=== PATIENT | female | born 1985 | race Native Hawaiian/Other Pacific Islander ===

== ENCOUNTER 2016-10-07 00:39 | Emergency (ER) | payer OTHER ==
[2016-10-07] MEDS ORDERED: ACETAMINOPHEN 325 MG TAB As Ordered ONE (02:16)
[2016-10-07] MEDS ORDERED: CIPROFLOXACIN 500 MG TAB As Ordered ONE (03:18)
--- NOTE | 2016-10-07 03:33 | EDDOCDS ---
Nurse's Notes [facility] Name: Elizabeth Joyce Age: 30 yrs Sex: Female : 1985 Arrival Date: 10/07/2016 Time: 00:39 Bed I5 / M5 Private MD: Diagnosis: Urinary tract infection, site not specified Presentation: 10/07 00:48 Presenting complaint: Patient states: fever, sore throat, body aches. Risk factors: af2 Stridor is not present. Drooling is not present. Shortness of breath is not present. Cellulitis is not present. Adult Sepsis Screening: The patient does not have new or worsening altered mentation. Patient's respiratory rate is less than 22. Systolic blood pressure is greater than 100. Patient has a qSOFA score of 0- Negative Sepsis Screen. Suicide/Homicide risk assessment- the patient denies having any suicidal and/or homicidal ideations and does not present with any other emotional, behavioral or mental health complaints. 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 Transition of care: patient was not received from another setting of care. 00:48 Acuity: MABEL Level 5 af2 00:48 Method Of Arrival: Walkin/Carried/Asstd af2 Triage Assessment: 00:49 General: Appears in no apparent distress, Behavior is cooperative. Pain: Location: af2 throat Pain currently is 6 out of 10 on a pain scale. Pt Declines HIV testing. EENT: Reports sore throat. Respiratory: Airway is patent Respiratory effort is even, unlabored. BIOLOGY INTERNSHIP: 00:46 LMP N/A - control method af2 Historical: - Allergies: Tramadol HCl; PENICILLINS; - Home Meds: 1. none - PMHx: none; - PSHx: none; - Social history: Smoking status: Patient states was never smoker of tobacco. No barriers to communication noted, Speaks appropriately for age. - Family history: No immediate family members are acutely ill. - : The pt / caregiver states he / she is not on anticoagulants. Home medication list is obtained from the patient. - Exposure Risk Screening:: None identified. Screenin:29 Screening information is obtained from the patient. Fall risk: No risks identified. sls1 Assistance ADL's: requires no assistance with activities of daily living. Abuse/DV Screen: The patient / caregiver reports he/she is: not in a situation that causes fear, pain or injury. Nutritional screening: No deficits noted. Advance Directives: Further advance directive information is declined. home support is adequate. Assessment: 02:29 General: Appears in no apparent distress, Behavior is appropriate for age, cooperative. sls1 Neurological: Level of Consciousness is awake, alert. EENT: Throat is reddened has enlarged tonsils on right with gag reflex present. Respiratory: Airway is patent Respiratory effort is even, unlabored, Respiratory pattern is regular, symmetrical. Derm: No deficits noted. 03:30 Reassessment: Patient appears in no apparent distress at this time. Discharge sls1 instructions reviewed with pt including medication use and follow up care, pt verbalizes understanding of all instructions. Pain: Denies pain. Neurological: No deficits noted. Respiratory: No deficits noted. Vital Signs: 00:46 BP 126 / 76 RA Sitting (auto/); Pulse 96; Resp 18 S; Temp 101(T); Pulse Ox 99% on R/A; af2 Weight 63.5 kg (R); Height 5 ft. 3 in. (160.02 cm) (R); Pain 6/10; 03:30 BP 132 / 74; Pulse 92; Resp 18; Temp 97.8(O); Pulse Ox 99% on R/A; Pain 0/10; sls1 00:46 Body Mass Index 24.80 (63.50 kg, 160.02 cm) af2 Vitals: 00:46 Log In Time: October 07, 2016 at 00:39. af2 02:30 Strep Screen is obtained and tested: Negative, a GATSNEG culture is ordered in [place] [address] and sent. ED Course: 00:40 Patient visited by Bao Marshall, Reg. pm4 00:40 Patient moved to Waiting pm4 00:48 Triage Initiated af2 00:50 Patient visited by Denia Gabriel RN. af2 00:50 Patient moved to TR2 af2 00:51 Patient moved to [facility] Wait sls1 01:44 Patient moved to I5 / M5 [facility] 02:21 Nakul Erickson RPA-C is PHCP. ck7 02:21 Harry Harrison DO is Attending Physician. ck7 02:21 Patient visited by Nakul Ericksno RPA-C. ck7 02:29 The patient / caregiver is instructed regarding the plan of care and ED course. Patient sls1 has correct armband on for positive identification. 02:29 Urine Culture Sent. sls1 02:29 UA Sent. sls1 02:29 -Influenza A&B Rapid Antigen - Nose Sent. sls1 02:29 No IV's were initiated during this patient's visit. Strep culture sent to lab. sls1 02:31 Patient visited by Annelise Corley RN. sls1 02:35 GATS (NEGATIVE STREP SCREEN) Sent. sls1 02:[address] to [address] lane 02:52 Patient moved to I5 / lane 03:15 [facility] Payment Agreement was scanned into [employer] and attached to record. hs2 03:30 Discontinued lock intact, bleeding controlled, pressure dressing applied, No sls1 redness/swelling at site. No procedures done that require assistance. Administered Medications: 02:22 Drug: Acetaminophen 975 mg [acetaminophen 325 mg tablet (3 tabs)] Route: PO; sls1 03:30 Drug: Ciprofloxacin 500 mg [ciprofloxacin 500 mg tablet (1 tabs)] Route: PO; [facility] Point of Care Testing: Urine : 02:30 hCG Reading: Negative; Control Reading: Positive; [facility] Ranges: Order Results: Lab Order: -Influenza A&B Rapid Antigen - Nose; SPEC'M 10/07/16 02:27 Test: INFLUENZA A RAPID SCR by ICA; Value: INFLUENZA A RESULTS NEGATIVE; Status: F Test: INFLUENZA A RAPID SCR by ICA; Value: Comments:; Status: F Test: INFLUENZA B RAPID SCR by ICA; Value: INFLUENZA B RESULTS NEGATIVE; Status: F Test Note: ; The Influenza test is a direct rapid immunoassay for the qualitative detection of Influenza viral antigen. Cell culture (Viral Culture) testing should be considered to confirm NEGATIVE results and to assist in detecting other viruses that can provide similar clinical symptoms. Please contact the lab within 24 hours ([phone] if confirmatory testing is desired. Lab Order: UA; SPEC'M 10/07/16 02:27 Test: APPEARANCE, URINE; Value: CLOUDY; Range: CLEAR; Abnormal: Above high normal; Status: F Test: COLOR, URINE; Value: DENIA; Range: YELLOW; Status: F Test: PH,URINE; Value: 5.0; Range: 5.0-9.0; Units: UNITS; Status: F Test: SPECIFIC GRAVITY URINE AUTO; Value: 1.026; Range: 1.002-1.035; Status: F Test: PROTEIN, URINE AUTO; Value: 1+; Range: NEGATIVE; Abnormal: Above high normal; Units: mg/dL; Status: F Test: GLUCOSE, URINE (UA) AUTO; Value: NEGATIVE; Range: NEGATIVE; Units: mg/dL; Status: F Test: KETONE, URINE AUTO; Value: NEGATIVE; Range: NEGATIVE; Units: mg/dL; Status: F Test: UROBILINOGEN, URINE AUTO; Value: 2.0; Range: 0.0-2.0; Abnormal: Above high normal; Units: mg/dL; Status: F Test: BILIRUBIN, URINE AUTO; Value: NEGATIVE; Range: NEGATIVE; Status: F Test: NITRITE, URINE AUTO; Value: POSITIVE; Range: NEGATIVE; Status: F Test: LEUKOCYTE ESTERASE, URINE AUTO; Value: 2+; Range: NEGATIVE; Abnormal: Above high normal; Status: F Test: BLOOD, URINE BLOOD; Value: 1+; Range: NEGATIVE; Abnormal: Above high normal; Status: F Test: WBC, URINE AUTO; Value: 59; Range: 0-3; Abnormal: Above high normal; Units: /HPF; Status: F Test: RBC, URINE AUTO; Value: 13; Range: 0-3; Abnormal: Above high normal; Units: /HPF; Status: F Test: BACTERIA, URINE AUTO; Value: 3+; Range: NEGATIVE; Abnormal: Above high normal; Status: F Test: SQUAMOUS EPITHELIAL CELL UR AU; Value: 18; Range: 0-6; Units: /HPF; Status: F Test: MUCUS, URINE; Value: LARGE; Range: NEGATIVE; Status: F Test: HYALINE CAST, URINE AUTO; Value: 0; Range: 0-1; Units: /LPF; Status: F Outcome: 03:06 Discharge ordered by Provider. ck7 03:30 Discharge Assessment: Patient awake, alert and oriented x 3. No cognitive and/or sls1 functional deficits noted. Patient verbalized understanding of disposition instructions. patient administered narcotics - no. The following High Risk Discharge criteria are identified: None. Discharged to home ambulatory. Condition: stable. Discharge instructions given to patient, Instructed on discharge instructions, follow up and referral plans. medication usage, Demonstrated understanding of instructions, medications, Pt was receptive of discharge instructions/ teaching. Prescriptions given X 1. No special radiology studies were completed. Property :Personal belongings accompany Pt. 03:33 Patient left the ED. sls1 Signatures: Durga Campos Shannon, RN RN sls1 Nakul Erickson, RPA-C RPA-Cck7 Denia Gabriel RN RN af2 Radha Arango, Reg Reg hs2 Bao Marshall, Reg Reg pm4 MTDD
--- NOTE | 2016-10-07 03:33 | EDDOCDS ---
Physician Documentation [facility] Name: Elizabeth Joyce Age: 30 yrs Sex: Female : 1985 Arrival Date: 10/07/2016 Time: 00:39 Bed I5 / M5 Private MD: Disposition: 10/07/16 03:06 Discharged to Home/Self Care. Impression: Urinary tract infection, site not specified. - Condition is Stable. - Discharge Instructions: Urinary Tract Infection. - Prescriptions for Cipro 500 mg Oral Tablet - take 1 tablet by ORAL route every 12 hours; 14 tablet. - Medication Reconciliation, Local Pharmacy Hours form. - Follow up: Private Physician; When: Tomorrow; Reason: Recheck today's complaints, Continuance of care. - Problem is new. - Symptoms have improved. Historical: - Allergies: Tramadol HCl; PENICILLINS; - Home Meds: 1. none - PMHx: none; - PSHx: none; - Social history: Smoking status: Patient states was never smoker of tobacco. No barriers to communication noted, Speaks appropriately for age. - Family history: No immediate family members are acutely ill. - : The pt / caregiver states he / she is not on anticoagulants. Home medication list is obtained from the patient. - Exposure Risk Screening:: None identified. 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 3 in. (160.02 cm) (R); Pain 6/10; 03:30 BP 132 / 74; Pulse 92; Resp 18; Temp 97.8(O); Pulse Ox 99% on R/A; Pain 0/10; sls1 00:46 Body Mass Index 24.80 (63.50 kg, 160.02 cm) af2 MDM: 02:15 Acetaminophen Tablet 975 mg PO once ordered. sls1 02:26 Strep Screen, Nursing ordered. ck7 02:26 Obtain sample by nasopharyngeal swab ordered. ck7 02:26 UCG by Nursing ordered. ck7 02:26 -Influenza A&B Rapid Antigen - Nose Ordered. EDMS 02:26 UA Ordered. EDMS 02:26 Urine Culture Ordered. EDMS 02:30 GATS (NEGATIVE STREP SCREEN) Ordered. EDMS 02:40 Chest, 2 View (pa\E\lat) Ordered. EDMS 02:58 Ciprofloxacin 500 mg PO once ordered. ck7 02:58 UA Reviewed. ck7 03:05 Financial registration complete. hs2 03:15 [facility] Payment Agreement was scanned into [employer] and attached to record. hs2 Point of Care Testing: Urine : 02:30 hCG Reading: Negative; Control Reading: Positive; sls1 Ranges: Administered Medications: 02:22 Drug: Acetaminophen 975 mg [acetaminophen 325 mg tablet (3 tabs)] Route: PO; sls1 03:30 Drug: Ciprofloxacin 500 mg [ciprofloxacin 500 mg tablet (1 tabs)] Route: PO; sls1 Signatures: Dispatcher [employer] EDAnnelise Prasad RN RN sls1 Nakul Erickson, RPA-C RPA-Cck7 Denia Gabriel RN RN af2 Radha Arango, Reg Reg hs2 The chart was reviewed and I authenticate all verbal orders and agree with the evaluation and treatment provided.Attachments: 03:15 [facility] Payment Agreement hs2 MTDD
--- NOTE | 2016-10-07 07:03 | REP ---
Clinical: Chest pain and fever . Comparison: None . Technique: PA and lateral. Findings: The mediastinum and cardiac silhouette are normal. The lung chase are clear and without acute consolidation, effusion, or pneumothorax. The skeletal structures are intact and normal. Impression: 1. No acute cardiopulmonary process. Signed by Aguilar Trent MD 10/07/2016 06:54 A
--- NOTE | 2016-10-09 04:33 | EDDOCDS ---
Physician Documentation [facility] Name: Elizabeth Evans Age: 30 yrs Sex: Female : 1985 Arrival Date: 10/07/2016 Time: 00:39 Bed I5 / M5 Private MD: Disposition: 10/07/16 03:06 Discharged to Home/Self Care. Impression: Urinary tract infection, site not specified. - Condition is Stable. - Discharge Instructions: Urinary Tract Infection. - Prescriptions for Cipro 500 mg Oral Tablet - take 1 tablet by ORAL route every 12 hours; 14 tablet. - Medication Reconciliation, Local Pharmacy Hours form. - Follow up: Private Physician; When: Tomorrow; Reason: Recheck today's complaints, Continuance of care. - Problem is new. - Symptoms have improved. Historical: - Allergies: Tramadol HCl; PENICILLINS; - Home Meds: 1. none - PMHx: none; - PSHx: none; - Social history: Smoking status: Patient states was never smoker of tobacco. No barriers to communication noted, Speaks appropriately for age. - Family history: No immediate family members are acutely ill. - : The pt / caregiver states he / she is not on anticoagulants. Home medication list is obtained from the patient. - Exposure Risk Screening:: None identified. 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 3 in. (160.02 cm) (R); Pain 6/10; 03:30 BP 132 / 74; Pulse 92; Resp 18; Temp 97.8(O); Pulse Ox 99% on R/A; Pain 0/10; sls1 00:46 Body Mass Index 24.80 (63.50 kg, 160.02 cm) af2 MDM: 02:15 Acetaminophen Tablet 975 mg PO once ordered. sls1 02:26 Strep Screen, Nursing ordered. ck7 02:26 Obtain sample by nasopharyngeal swab ordered. ck7 02:26 UCG by Nursing ordered. ck7 02:26 -Influenza A&B Rapid Antigen - Nose Ordered. EDMS 02:26 UA Ordered. EDMS 02:26 Urine Culture Ordered. EDMS 02:30 GATS (NEGATIVE STREP SCREEN) Ordered. EDMS 02:40 Chest, 2 View (pa\E\lat) Ordered. EDMS 02:58 Ciprofloxacin 500 mg PO once ordered. ck7 02:58 UA Reviewed. ck7 03:05 Financial registration complete. hs2 03:15 [facility] Payment Agreement was scanned into [employer] and attached to record. hs2 12:29 T-Sheet-- Draft Copy was scanned into [employer] and attached to record. gb Point of Care Testing: Urine : 02:30 hCG Reading: Negative; Control Reading: Positive; sls1 Ranges: Administered Medications: 02:22 Drug: Acetaminophen 975 mg [acetaminophen 325 mg tablet (3 tabs)] Route: PO; sls1 03:30 Drug: Ciprofloxacin 500 mg [ciprofloxacin 500 mg tablet (1 tabs)] Route: PO; sls1 Signatures: Dispatcher [employer] EDMS Kathryn Chatterjee, Reg Reg gb Annelise Corley RN RN sls1 Nakul Erickson, RPA-C RPA-Cck7 Denia GabrielRN RN af2 Radha Arango, Reg Reg hs2 The chart was reviewed and I authenticate all verbal orders and agree with the evaluation and treatment provided.Attachments: 03:15 [facility] Payment Agreement hs2 12:29 T-Sheet-- Draft Copy gb Chart Complete MTDD
--- NOTE | 2016-10-09 04:33 | EDDOCDS ---
Nurse's Notes [facility] Name: Elizabeth Evans Age: 30 yrs Sex: Female : 1985 Arrival Date: 10/07/2016 Time: 00:39 Bed I5 / M5 Private MD: Diagnosis: Urinary tract infection, site not specified Presentation: 10/07 00:48 Presenting complaint: Patient states: fever, sore throat, body aches. Risk factors: af2 Stridor is not present. Drooling is not present. Shortness of breath is not present. Cellulitis is not present. Adult Sepsis Screening: The patient does not have new or worsening altered mentation. Patient's respiratory rate is less than 22. Systolic blood pressure is greater than 100. Patient has a qSOFA score of 0- Negative Sepsis Screen. Suicide/Homicide risk assessment- the patient denies having any suicidal and/or homicidal ideations and does not present with any other emotional, behavioral or mental health complaints. 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 Transition of care: patient was not received from another setting of care. 00:48 Acuity: MABEL Level 5 af2 00:48 Method Of Arrival: Walkin/Carried/Asstd af2 Triage Assessment: 00:49 General: Appears in no apparent distress, Behavior is cooperative. Pain: Location: af2 throat Pain currently is 6 out of 10 on a pain scale. Pt Declines HIV testing. EENT: Reports sore throat. Respiratory: Airway is patent Respiratory effort is even, unlabored. PAIN MANAGEMENT PHYSICIAN: 00:46 LMP N/A - control method af2 Historical: - Allergies: Tramadol HCl; PENICILLINS; - Home Meds: 1. none - PMHx: none; - PSHx: none; - Social history: Smoking status: Patient states was never smoker of tobacco. No barriers to communication noted, Speaks appropriately for age. - Family history: No immediate family members are acutely ill. - : The pt / caregiver states he / she is not on anticoagulants. Home medication list is obtained from the patient. - Exposure Risk Screening:: None identified. Screenin:29 Screening information is obtained from the patient. Fall risk: No risks identified. sls1 Assistance ADL's: requires no assistance with activities of daily living. Abuse/DV Screen: The patient / caregiver reports he/she is: not in a situation that causes fear, pain or injury. Nutritional screening: No deficits noted. Advance Directives: Further advance directive information is declined. home support is adequate. Assessment: 02:29 General: Appears in no apparent distress, Behavior is appropriate for age, cooperative. sls1 Neurological: Level of Consciousness is awake, alert. EENT: Throat is reddened has enlarged tonsils on right with gag reflex present. Respiratory: Airway is patent Respiratory effort is even, unlabored, Respiratory pattern is regular, symmetrical. Derm: No deficits noted. 03:30 Reassessment: Patient appears in no apparent distress at this time. Discharge sls1 instructions reviewed with pt including medication use and follow up care, pt verbalizes understanding of all instructions. Pain: Denies pain. Neurological: No deficits noted. Respiratory: No deficits noted. Vital Signs: 00:46 BP 126 / 76 RA Sitting (auto/); Pulse 96; Resp 18 S; Temp 101(T); Pulse Ox 99% on R/A; af2 Weight 63.5 kg (R); Height 5 ft. 3 in. (160.02 cm) (R); Pain 6/10; 03:30 BP 132 / 74; Pulse 92; Resp 18; Temp 97.8(O); Pulse Ox 99% on R/A; Pain 0/10; sls1 00:46 Body Mass Index 24.80 (63.50 kg, 160.02 cm) af2 Vitals: 00:46 Log In Time: October 07, 2016 at 00:39. af2 02:30 Strep Screen is obtained and tested: Negative, a GATSNEG culture is ordered in [place] [id number] and sent. ED Course: 00:40 Patient visited by Bao Marshall, Reg. pm4 00:40 Patient moved to Waiting pm4 00:48 Triage Initiated af2 00:50 Patient visited by Denia Gabriel RN. af2 00:50 Patient moved to TR2 af2 00:51 Patient moved to [facility] Wait sls1 01:44 Patient moved to I5 / M5 [facility] 02:21 Nakul Erickson RPA-C is PHCP. ck7 02:21 Harry Harrison DO is Attending Physician. ck7 02:21 Patient visited by Nakul Erickson RPA-C. ck7 02:29 The patient / caregiver is instructed regarding the plan of care and ED course. Patient sls1 has correct armband on for positive identification. 02:29 Urine Culture Sent. sls1 02:29 UA Sent. sls1 02:29 -Influenza A&B Rapid Antigen - Nose Sent. sls1 02:29 No IV's were initiated during this patient's visit. Strep culture sent to lab. sls1 02:31 Patient visited by Annelise Corley RN. sls1 02:35 GATS (NEGATIVE STREP SCREEN) Sent. sls1 02:[address] moved to Radiology lane 02:52 Patient moved to I5 / M5 lane 03:15 [facility] Payment Agreement was scanned into [employer] and attached to record. hs2 03:30 Discontinued lock intact, bleeding controlled, pressure dressing applied, No sls1 redness/swelling at site. No procedures done that require assistance. 07:41 Chest, 2 View (pa\E\lat) Returned. EDMS 12:29 T-Sheet-- Draft Copy was scanned into [employer] and attached to record. 10/08 07:07 Patient name changed from December\S\Monserrat\S\Isiah\S\ to December\S\Monserrat\S\Salon. EDMS Administered Medications: 10/07 02:22 Drug: Acetaminophen 975 mg [acetaminophen 325 mg tablet (3 tabs)] Route: PO; sls1 03:30 Drug: Ciprofloxacin 500 mg [ciprofloxacin 500 mg tablet (1 tabs)] Route: PO; [facility] Point of Care Testing: Urine : 02:30 hCG Reading: Negative; Control Reading: Positive; [facility] Ranges: Order Results: Lab Order: -Influenza A&B Rapid Antigen - Nose; SPEC'M 10/07/16 02:27 Test: INFLUENZA A RAPID SCR by ICA; Value: INFLUENZA A RESULTS NEGATIVE; Status: F Test: INFLUENZA A RAPID SCR by ICA; Value: Comments:; Status: F Test: INFLUENZA B RAPID SCR by ICA; Value: INFLUENZA B RESULTS NEGATIVE; Status: F Test Note: ; The Influenza test is a direct rapid immunoassay for the qualitative detection of Influenza viral antigen. Cell culture (Viral Culture) testing should be considered to confirm NEGATIVE results and to assist in detecting other viruses that can provide similar clinical symptoms. Please contact the lab within 24 hours ([phone]) if confirmatory testing is desired. Lab Order: UA; SPEC'M 10/07/16 02:27 Test: APPEARANCE, URINE; Value: CLOUDY; Range: CLEAR; Abnormal: Above high normal; Status: F Test: COLOR, URINE; Value: DENIA; Range: YELLOW; Status: F Test: PH,URINE; Value: 5.0; Range: 5.0-9.0; Units: UNITS; Status: F Test: SPECIFIC GRAVITY URINE AUTO; Value: 1.026; Range: 1.002-1.035; Status: F Test: PROTEIN, URINE AUTO; Value: 1+; Range: NEGATIVE; Abnormal: Above high normal; Units: mg/dL; Status: F Test: GLUCOSE, URINE (UA) AUTO; Value: NEGATIVE; Range: NEGATIVE; Units: mg/dL; Status: F Test: KETONE, URINE AUTO; Value: NEGATIVE; Range: NEGATIVE; Units: mg/dL; Status: F Test: UROBILINOGEN, URINE AUTO; Value: 2.0; Range: 0.0-2.0; Abnormal: Above high normal; Units: mg/dL; Status: F Test: BILIRUBIN, URINE AUTO; Value: NEGATIVE; Range: NEGATIVE; Status: F Test: NITRITE, URINE AUTO; Value: POSITIVE; Range: NEGATIVE; Status: F Test: LEUKOCYTE ESTERASE, URINE AUTO; Value: 2+; Range: NEGATIVE; Abnormal: Above high normal; Status: F Test: BLOOD, URINE BLOOD; Value: 1+; Range: NEGATIVE; Abnormal: Above high normal; Status: F Test: WBC, URINE AUTO; Value: 59; Range: 0-3; Abnormal: Above high normal; Units: /HPF; Status: F Test: RBC, URINE AUTO; Value: 13; Range: 0-3; Abnormal: Above high normal; Units: /HPF; Status: F Test: BACTERIA, URINE AUTO; Value: 3+; Range: NEGATIVE; Abnormal: Above high normal; Status: F Test: SQUAMOUS EPITHELIAL CELL UR AU; Value: 18; Range: 0-6; Units: /HPF; Status: F Test: MUCUS, URINE; Value: LARGE; Range: NEGATIVE; Status: F Test: HYALINE CAST, URINE AUTO; Value: 0; Range: 0-1; Units: /LPF; Status: F Lab Order: Urine Culture; SPEC'M 10/07/16 02:27 Test: URINE CULTURE; Value: ORGANISM 1: ESCHERICHIA COLI; Status: F Test: URINE CULTURE; Value: ESCHERICHIA COLI; Status: F Test: URINE CULTURE; Value: COLONY COUNT CFU/ml >100,000; Status: F Test: URINE CULTURE; Value: GRAM NEG SENSI - VITEK 80; Status: F Test: URINE CULTURE; Value: Method: VIT2; Status: F Test: URINE CULTURE; Value: EXTD BRD SPCTRM BETA LACTAMASE -; Status: F Test: URINE CULTURE; Value: TRIMETHOPRIM/SULFAMETHOXAZOLE <=20 S; Status: F Test: URINE CULTURE; Value: AMPICILLIN >=32 R; Status: F Test: URINE CULTURE; Value: GENTAMICIN <=1 S; Status: F Test: URINE CULTURE; Value: NITROFURANTOIN <=16 S; Status: F Test: URINE CULTURE; Value: CEFAZOLIN 16 I; Status: F Test: URINE CULTURE; Value: LEVOFLOXACIN <=0.12 S; Status: F Test: URINE CULTURE; Value: TOBRAMYCIN <=1 S; Status: F Test: URINE CULTURE; Value: CEFTRIAXONE <=1 S; Status: F Test: URINE CULTURE; Value: CEFTAZIDIME <=1 S; Status: F Test: URINE CULTURE; Value: AMPICILLIN/SULBACTAM >=32 R; Status: F Test: URINE CULTURE; Value: PIPERACILLIN/TAZOBACTAM <=4 S; Status: F Test: URINE CULTURE; Value: AZTREONAM <=1 S; Status: F Test: URINE CULTURE; Value: ERTAPENEM <=0.5 S; Status: F Test: URINE CULTURE; Value: MEROPENEM <=0.25 S; Status: F Test: URINE CULTURE; Value: TIGECYCLINE <=0.5 S; Status: F Test: URINE CULTURE; Value: CEFEPIME <=1 S; Status: F Lab Order: GATS (NEGATIVE STREP SCREEN); SPEC'M 10/07/16 02:23 Test: GATS CULTURE (NEG STREP SCR); Value: GATS RESULT POSITIVE FOR STREP PYOGENES (GROUP A); Abnormal: Abnormal; Status: F Test: GATS CULTURE (NEG STREP SCR); Value: ORGANISM 1: STREPTOCOCCUS PYOGENES GRP A; Status: F Test: GATS CULTURE (NEG STREP SCR); Value: STREPTOCOCCUS PYOGENES GRP A; Status: F Test: GATS CULTURE (NEG STREP SCR); Value: QUANTITY OF GROWTH HEAVY; Status: F Radiology Order: Chest, 2 View (pa\E\lat) Test: Chest, 2 View (pa\E\lat) REASON FOR EXAMINATION: FEVER; Clinical: Chest pain and fever .; ; Comparison: None .; ; Technique: PA and lateral.; ; Findings:; The mediastinum and cardiac silhouette are normal. The lung chase are clear and; without acute consolidation, effusion, or pneumothorax. The skeletal structures; are intact and normal.; ; Impression:; 1. No acute cardiopulmonary process.; ; ; Signed by; Aguilar Trent MD 10/07/2016 06:54 A; Outcome: 03:06 Discharge ordered by Provider. ck7 03:30 Discharge Assessment: Patient awake, alert and oriented x 3. No cognitive and/or sls1 functional deficits noted. Patient verbalized understanding of disposition instructions. patient administered narcotics - no. The following High Risk Discharge criteria are identified: None. Discharged to home ambulatory. Condition: stable. Discharge instructions given to patient, Instructed on discharge instructions, follow up and referral plans. medication usage, Demonstrated understanding of instructions, medications, Pt was receptive of discharge instructions/ teaching. Prescriptions given X 1. No special radiology studies were completed. Property :Personal belongings accompany Pt. 03:33 Patient left the ED. sls1 Signatures: Dispatcher [employer] EDMS Durga Campos Gloria, Reg Reg Annelise John, RN RN sls1 Nakul Erickson, RPA-C RPA-Cck7 Denia GabrielRN RN af2 Radha Arango, Reg Reg hs2 Bao Marshall, Reg Reg pm4 Chart Complete MTDD
--- NOTE | 2016-10-09 04:33 | EDDOCDS ---
Physician Documentation [facility] Name: Elizabeth Evans Age: 30 yrs Sex: Female : 1985 Arrival Date: 10/07/2016 Time: 00:39 Bed I5 / M5 Private MD: Disposition: 10/07/16 03:06 Discharged to Home/Self Care. Impression: Urinary tract infection, site not specified. - Condition is Stable. - Discharge Instructions: Urinary Tract Infection. - Prescriptions for Cipro 500 mg Oral Tablet - take 1 tablet by ORAL route every 12 hours; 14 tablet. - Medication Reconciliation, Local Pharmacy Hours form. - Follow up: Private Physician; When: Tomorrow; Reason: Recheck today's complaints, Continuance of care. - Problem is new. - Symptoms have improved. Historical: - Allergies: Tramadol HCl; PENICILLINS; - Home Meds: 1. none - PMHx: none; - PSHx: none; - Social history: Smoking status: Patient states was never smoker of tobacco. No barriers to communication noted, Speaks appropriately for age. - Family history: No immediate family members are acutely ill. - : The pt / caregiver states he / she is not on anticoagulants. Home medication list is obtained from the patient. - Exposure Risk Screening:: None identified. ONLINE PUBLISHER: 10/07 00:46 LMP N/A - control method af2 Vital Signs: 00:46 BP 126 / 76 RA Sitting (auto/); Pulse 96; Resp 18 S; Temp 101(T); Pulse Ox 99% on R/A; af2 Weight 63.5 kg / 139.99 lbs (R); Height 5 ft. 3 in. (160.02 cm) (R); Pain 6/10; 03:30 BP 132 / 74; Pulse 92; Resp 18; Temp 97.8(O); Pulse Ox 99% on R/A; Pain 0/10; sls1 00:46 Body Mass Index 24.80 (63.50 kg, 160.02 cm) af2 MDM: 02:15 Acetaminophen Tablet 975 mg PO once ordered. sls1 02:26 Strep Screen, Nursing ordered. ck7 02:26 Obtain sample by nasopharyngeal swab ordered. ck7 02:26 UCG by Nursing ordered. ck7 02:26 -Influenza A&B Rapid Antigen - Nose Ordered. EDMS 02:26 UA Ordered. EDMS 02:26 Urine Culture Ordered. EDMS 02:30 GATS (NEGATIVE STREP SCREEN) Ordered. EDMS 02:40 Chest, 2 View (pa\E\lat) Ordered. EDMS 02:58 Ciprofloxacin 500 mg PO once ordered. ck7 02:58 UA Reviewed. ck7 03:05 Financial registration complete. hs2 03:15 [facility] Payment Agreement was scanned into [employer] ? and attached to record. hs2 12:29 T-Sheet-- Draft Copy was scanned into [employer] ? and attached to record. gb Point of Care Testing: Urine : 02:30 hCG Reading: Negative; Control Reading: Positive; sls1 Ranges: Administered Medications: 02:22 Drug: Acetaminophen 975 mg [acetaminophen 325 mg tablet (3 tabs)] Route: PO; sls1 03:30 Drug: Ciprofloxacin 500 mg [ciprofloxacin 500 mg tablet (1 tabs)] Route: PO; sls1 Signatures: Dispatcher [employer] EDMS Kathryn Chatterjee, Reg Reg gb Annelise Corley RN RN sls1 Nakul Erickson, RPA-C RPA-Cck7 Denia GabrielRN RN af2 Radha Arango, Reg Reg hs2 The chart was reviewed and I authenticate all verbal orders and agree with the evaluation and treatment provided.Attachments: 03:15 [facility] Payment Agreement hs2 12:29 T-Sheet-- Draft Copy gb Chart Complete MTDD
== END 2016-10-07 03:33 | disposition home or self-care (01) ==
LOC: M ED 00:39
DX: N39.0 Urinary tract infection, site not specified (principal); R50.9 Fever, unspecified; R51 Headache; Z88.8 Allergy status to other drugs, medicaments and biological substances; Z88.0 Allergy status to penicillin